=== PATIENT | male | born 1990 | race African-American/Black ===

== ENCOUNTER 2017-05-20 13:42 | Emergency (ER) | payer OTHER ==
[~2017-05-20] VITALS: Ht 180.3 cm; Wt 86.4 kg
[2017-05-20] MEDS ORDERED: AZITHROMYCIN 250 MG TAB PO ONE (18:15)
[2017-05-20] MEDS ORDERED: cefTRIAXone SOD 250 MG VIAL (J0696) IM ONE (18:15)
[2017-05-20 18:40] VITALS: BP 131/76
== END 2017-05-20 18:53 | disposition home or self-care (01) ==
LOC: M ED 13:42
DX: R30.0 Dysuria (principal)
CPT/HCPCS: 81001; 87491; 87591; 96372; 99282; J0696